=== PATIENT | female | born 1935 | race Caucasian/White ===

== ENCOUNTER 2018-08-12 09:11 | Emergency (ER) | payer MEDICARE, OTHER ==
[~2018-08-12] VITALS: Ht 157.5 cm; Wt 110.7 kg
--- NOTE | 2018-08-12 09:11 | NUR ---
MAGUE FROM [facility] FOR NON RADIATING CHEST PAIN X 2 DAYS DURING MOVEMENT, GENERALIZED WEAKNESS AND SOB. 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 AAO X4, FULL CLEAR SPEECH, FACIAL SYMMETRICAL, PERRLA, BRISK 3 MM. EQUAL EDGARD MILD WEAKNESS TO UPPER AND LOWER EXTREMITIES. 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 HOB UP. BED SIDE RAILS UP X1. ON LOW BED POSITION, LOCKED. ER TO ASSESS PT.
--- NOTE | 2018-08-12 09:11 | NUR ---
Patient MAGUE ROD from [facility], transferred to bed 10. RN evaluating patient at bedside.
--- NOTE | 2018-08-12 09:16 | NUR ---
Dr. Flynn evaluating patient at bedside.
[2018-08-12] MEDS ORDERED: KETOROLAC 15 MG/ML VIAL IVP ONE (09:20)
[2018-08-12] MEDS ORDERED: ASPIRIN 325 MG TAB PO ONE (09:20)
[2018-08-12] MEDS ORDERED: NITROGLYCERIN 0.4 MG TAB SL PRN (09:20)
[2018-08-12 09:24] VITALS: BP 79/50
[2018-08-12] MEDS ORDERED: ALBUTEROL SULFATE/IPRATROPIU 3 ML SOL IH ONE ×2 (09:25→14:40)
[2018-08-12] MEDS ORDERED: methylPREDNISolone SS 125 MG/2 ML VIAL IVP ONE (09:25)
[2018-08-12] MEDS ORDERED: DILTIAZEM 25 MG/5 ML VIAL IVP ONE (09:25)
--- NOTE | 2018-08-12 09:26 | NUR ---
CARDIZEM AND NITROSTAT HELD DUE TO BP: 85/49. DR PAYNE AWARE.
[2018-08-12] MEDS ORDERED: GABA-636 PO (09:37)
[2018-08-12] MEDS ORDERED: GABA100C PO (09:37)
[2018-08-12] MEDS ORDERED: ALLO100T21 PO (09:37)
[2018-08-12] MEDS ORDERED: LOSA50TA66 PO (09:37)
[2018-08-12] MEDS ORDERED: ATOR10TA51 PO (09:37)
[2018-08-12] MEDS ORDERED: NAPR-1641 PO (09:37)
[2018-08-12 10:03] LABS: BASOPHILS % (AUTO) 0.2 % (0.0-2.0); EOSINOPHILS % (AUTO) 0.4 % (0.0-4.0); HEMATOCRIT 33.8 % (36-48); HEMOGLOBIN 11.1 g/dL (12.0-16.0); LYMPHOCYTES # (AUTO) 0.4 K/uL (2.5-16.5); MEAN CORPUSCULAR HEMOGLOBIN 28 pg (27-31); MEAN CORPUSCULAR HGB CONC 33 g/dL (33-37); MONOCYTES # (AUTO) 1.1 K/uL (0.8-1.0); MONOCYTES % (AUTO) 8.4 % (1.7-9.3); PLATELET COUNT (AUTO) 182 K/uL (140-450); RED BLOOD CELL COUNT(AUTO) 3.98 MIL/uL (4.20-5.40); RED CELL DISTRIBUTION WIDTH 14.4 % (11.6-13.7); WHITE BLOOD COUNT (AUTO) 12.5 K/uL (4.8-10.8)
[2018-08-12] MEDS ORDERED: NACL 0.9% 1,000 ML IV ONE ×3 (10:05→15:50)
[2018-08-12 10:12] LABS: ANION GAP 12.7 (8-16); CARBON DIOXIDE 25.6 mmol/L (21-32); CHLORIDE 94 mmol/L (98-107); CREATININE 2.2 mg/dL (0.6-1.3); GLUCOSE 128 mg/dL (74-106); POTASSIUM 3.3 mmol/L (3.5-5.1); SODIUM SERUM 129 mmol/L (136-145); UREA NITROGEN, BLOOD 45 mg/dL (7-18)
[2018-08-12 10:19] LABS: LYMPHOCYTES % (AUTO) 3.4 % (20.5-51.1); NEUTROPHILS % (AUTO) 87.6 % (42.2-75.2)
--- NOTE | 2018-08-12 10:20 | NUR ---
PT AAO X4. FULL CLEAR SPEECH, FACIAL SYMMETRICAL. 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 WILL CONTINUE TO MONITOR.
[2018-08-12 10:27] LABS: ALBUMIN 2.5 g/dL (3.4-5.0); ASPARTATE AMINOTRANSFERASE 64 U/L (15-37)
[2018-08-12 10:40] LABS: APPEARANCE,URINE HAZY (CLEAR); BILIRUBIN,URINE 1+ (NEGATIVE); BLOOD, URINE 2+ (NEGATIVE); COLOR,URINE YELLOW (YELLOW); LEUKOCYTE ESTERASE ,URINE 2+ (NEGATIVE); NITRITE, URINE NEGATIVE (NEGATIVE); UGLUCOSE NEGATIVE (NEGATIVE)
[2018-08-12 10:49] LABS: WBC,URINE 60-80 /HPF (0-5)
[2018-08-12 10:50] LABS: RBC,URINE 11-20 (MOD) /HPF (0-5)
[2018-08-12] MEDS ORDERED: NACL 0.9% 1,000 ML IV SCH (10:50)
[2018-08-12] MEDS ORDERED: LEVOFLOXACIN 750 MG/D5W PREMIX 150 ML IV ONE (10:50)
[2018-08-12] MEDS ORDERED: POTASSIUM CHLORIDE 10 MEQ TABER PO ONE (10:50)
--- NOTE | 2018-08-12 11:05 | NUR ---
PT AAO X4. SKIN WARM, DRY TO TOUCH. EVEN AND UNLABORED BREATHING. FULL CLEAR SPEECH, FACIAL SYMMETRY. SAFETY ENSURED. WILL CONTINUE TO MONITOR.
[2018-08-12] MEDS ORDERED: HYDROcodone/APAP 10/325 MG 1 TAB TAB PO STA (11:55)
--- NOTE | 2018-08-12 13:15 | NUR ---
DR PAYNE AT BEDSIDE FOR PT RE EVAL
[2018-08-12] MEDS ORDERED: HYDROcodone/APAP 5/325 MG 1 TAB TAB PO ONE (13:35)
--- NOTE | 2018-08-12 14:13 | NUR ---
PT IS AAO X4. EATING LUNCH AT THIS TIME.
--- NOTE | 2018-08-12 15:36 | NUR ---
RADIOLOGY AT BEDSIDE FOR CHEST XRAY
--- NOTE | 2018-08-12 16:35 | NUR ---
PT ASLEEP. EASILY AROUSABLE BY NAME. FULL CLEAR SPEECH, FACIAL SYMMETRY. NO SIGNS AND SYMPTOMS OF DISTRESS NOTED. SAFETY ENSURED. WILL CONTINUE TO MONITOR.
--- NOTE | 2018-08-12 17:15 | NUR ---
PT'S DAUGHTER AT BEDSIDE. PT AAO X4. ACTING APPROPRIATELY. FULL CLEAR SPEECH. VSS. ON FULL DRAIN CLEANER. WILL CONTINUE TO MONITOR.
--- NOTE | 2018-08-12 17:40 | NUR ---
PT SITTING UP EATING DINNER AT THIS TIME. PT TOLERATING WELL. RESPONDING APPROPRIATELY. AAO X4, FULL CLEAR SPEECH, EVEN AND UNLABORED BREATHING. WILL CONTINUE TO MONITOR.
--- NOTE | 2018-08-12 17:45 | NUR ---
CALLED [facility] AT [phone] SPOKE TO TONO GEIGER FOR PT REPORT.
--- NOTE | 2018-08-12 18:25 | NUR ---
Patient to be transferred to [facility]. Is being transferred due to acute asthma exacerbation, sepsis, uti, acute hypokalemia, acute hyponatremia, acute renal failure. Receiving facility has accepting physician and available space. ER physician has signed transfer form. Patient or responsible democrat has agreed to transfer and signed form. Patient belongings inventoried and will be sent with patient. Copy of nursing notes, lab reports, EKG, Physicians Orders and X-rays to be sent with patient. Report called to TONO [place] at receiving facility. [facility] ambulance service has been called for transfer. ETA is 20 mins.
--- NOTE | 2018-08-12 18:25 | NUR ---
GAVE REPORT TO TONO LEI FROM [place] FOR PT TRANSFER OF CARE. NS 0.9% AT 100ML/HR TO BE CONTINUED WHILE ON TRANSFER.
[2018-08-12 18:35] VITALS: BP 110/64
--- NOTE | 2018-08-15 08:36 | NUR ---
Late entry. Confirmed with RN that 1000ml 0.9 NS IV bolus completed at 1215, the next 1000ml IV completed at 1460. Levaquin IVPB completed at 1245. 0.9 NS at 100 ml/hr continued until 1830.
== END 2018-08-12 18:30 | disposition short-term general hospital (02) ==
LOC: MED 09:11
DX: N17.9 Acute kidney failure, unspecified (principal); J45.901 Unspecified asthma with (acute) exacerbation; R65.20 Severe sepsis without septic shock; N39.0 Urinary tract infection, site not specified; E87.1 Hypo-osmolality and hyponatremia; E87.6 Hypokalemia; I48.2 Chronic atrial fibrillation; I95.9 Hypotension, unspecified; J45.909 Unspecified asthma, uncomplicated; E11.9 Type 2 diabetes mellitus without complications; I10 Essential (primary) hypertension; Z88.5 Allergy status to narcotic agent; Z88.8 Allergy status to other drugs, medicaments and biological substances; Z79.899 Other long term (current) drug therapy
CPT/HCPCS: 36415; 71045; 80053; 81001; 82948; 83605; 83880; 84484; 85025; 85610; 85730; 87040; 87086; 87186; 94640; 96361; 96365; 96366; 96375; 99291; 99292; J1885; J1956; J2930; J7030; J7620; Q0092; 94644; 99285; J3490